=== PATIENT | female | born 1950 | race Caucasian/White ===

== ENCOUNTER 2017-04-08 21:58 | Emergency (ER) | payer MEDICARE, OTHER ==
[2017-04-08] MEDS ORDERED: Ondansetron 4 MG Tab.DIS PO ONE (22:17)
[2017-04-08] MEDS ORDERED: Ketorolac 30 MG/ML SDV IM ONE (22:17)
[2017-04-08] MEDS ORDERED: Morphine 2 MG/ML Syringe IM ONE (22:17)
--- NOTE | 2017-04-08 22:17 | EDM.PDOC ---
ED HPI GENERAL MEDICAL PROBLEM - General Chief Complaint: Neck Problem Stated Complaint: PT HAS PAIN IN NECK Time Seen by Provider: 04/08/17 23:00 - History of Present Illness INITIAL COMMENTS - FREE TEXT/NARRATIVE: HISTORY AND PHYSICAL: History of present illness: Patient 66-year-old female presents concern of left-sided neck pain started earlier today and got progressively worse she comes in with pain and spasm to her left neck. She denies numbness weakness denies any recent or remote trauma denies similar episodes prior Review of systems: As per history of present illness and below otherwise all systems reviewed and negative. Past medical history: As per history of present illness and as reviewed below otherwise noncontributory. Surgical history: As per history of present illness and as reviewed below otherwise noncontributory. Social history: No reported history of drug or alcohol abuse. Family history: As per history of present illness and as reviewed below otherwise noncontributory. Physical exam: HEENT: Atraumatic, normocephalic, pupils reactive, negative for conjunctival pallor or scleral icterus, mucous membranes moist, throat clear, patient noted tenderness and spasm in the left sternocleidomastoid is no vertebral body or point tenderness nontender, trachea midline. Lungs: Clear to auscultation, breath sounds equal bilaterally, chest nontender. Heart: S1S2, regular, negative for clicks, rubs, or JVD. Abdomen: Soft, nondistended, nontender. Negative for masses or hepatosplenomegaly. Negative for costovertebral tenderness. Pelvis: Stable nontender. Genitourinary: Deferred. Rectal: Deferred. Extremities: Atraumatic, negative for cords or calf pain. Neurovascular unremarkable. Neuro: Awake, alert, oriented. Cranial nerves II through XII unremarkable. Cerebellum unremarkable. Motor and sensory unremarkable throughout. Exam nonfocal. Diagnostics: CT cervical spine Therapeutics: Toradol 30 mg IM morphine sulfate 2 mg IM Zofran 4 mg ODT Impression: #1 torticollis Definitive disposition and diagnosis as appropriate pending reevaluation and review of above. Left Neck Pain Score (Numeric/FACES): 6 - Related Data Allergies Allergy/AdvReac Type Severity Reaction Status Date / Time No Known Allergies Allergy Verified 04/08/17 22:14 Home Meds: Home Meds atorvaSTATin [Lipitor] 0 mg PO BEDTIME 04/08/17 [History] ED ROS GENERAL - Review of Systems Review Of Systems: ROS reveals no pertinent complaints other than HPI. ED EXAM, GENERAL - Physical Exam Exam: See Below (See dictation) Course - Vital Signs Last Recorded V/S: Last Vital Signs Temp 36.6 C 04/09/17 00:53 Pulse 73 04/09/17 00:53 Resp 18 04/09/17 00:53 BP 128/74 04/09/17 00:53 Pulse Ox 98 04/09/17 00:53 - Orders/Labs/Meds Orders: Active Orders 24 hr Category Date Time Status Cervical Spine wo Cont [CT] Stat Exams 04/08/17 22:08 Taken Meds: Medications Discontinued Medications Generic Name Dose Route Start Last Admin Trade Name Freq PRN Reason Stop Dose Admin Ketorolac Tromethamine 30 mg 04/08/17 22:17 04/08/17 22:30 Toradol IM 04/08/17 22:18 30 mg ONETIME ONE Administration Morphine Sulfate 2 mg 04/08/17 22:17 04/08/17 22:31 Morphine IM 04/08/17 22:18 2 mg ONETIME ONE Administration Ondansetron HCl 4 mg 04/08/17 22:17 04/08/17 22:31 Zofran Odt PO 04/08/17 22:18 4 mg ONETIME ONE Administration Departure - Departure Time of Disposition: 22:16 Disposition: Home, Self-Care 01 Condition: Good Clinical Impression: Torticollis - Discharge Information Instructions: Acute Torticollis Referrals: PCP,None [Primary Care Provider] - Forms: ED Department Discharge Additional Instructions: The following information is given to patients seen in the emergency department who are being discharged to home. This information is to outline your options for follow-up care. We provide all patients seen in our emergency department with a follow-up referral. The need for follow-up, as well as the timing and circumstances, are variable depending upon the specifics of your emergency department visit. If you don't have a primary care physician on staff, we will provide you with a referral. We always advise you to contact your personal physician following an emergency department visit to inform them of the circumstance of the visit and for follow-up with them and/or the need for any referrals to a consulting specialist. The emergency department will also refer you to a specialist when appropriate. This referral assures that you have the opportunity for followup care with a specialist. All of these measure are taken in an effort to provide you with optimal care, which includes your followup. Under all circumstances we always encourage you to contact your private physician who remains a resource for coordinating your care. When calling for followup care, please make the office aware that this follow-up is from your recent emergency room visit. If for any reason you are refused follow-up, please contact the [facility] emergency department at and asked to speak to the emergency department charge nurse. Hydrocodone Flexeril as prescribed follow-up primary medical doctor 1-2 days return as needed as discussed] - My Orders Last 24 Hours: My Active Orders 04/08/17 22:08 Cervical Spine wo Cont [CT] Stat - Assessment/Plan Last 24 Hours: My Active Orders 04/08/17 22:08 Cervical Spine wo Cont [CT] Stat
--- NOTE | 2017-04-09 11:20 | CT ---
EXAM DATE: 04/08/17 PATIENT'S AGE: 66 Patient: ANTOLIN NGUYEN Facility: [place], [place] Site . Site : 1950 Study: CT Spine Cervical [id number]/28/2017 11:25:59 PM Ordering Physician: Doctor Puentes Final Report: INDICATION: Neck pain TECHNIQUE: CT cervical spine without contrast. COMPARISON: None available FINDINGS: The cervical spine alignment is maintained. The craniocervical and atlantoaxial alignments are near anatomical. There is no evidence of an acute cervical spine fracture. There is no significant precervical soft tissue swelling. There are small disc osteophyte complexes at C3-4 and C4-5. There is mild narrowing of the right C3-4 and C4-5 neural foramina and left C4-5 neural foramen. The thyroid is diffusely heterogeneous, containing multiple ill-defined low-density lesions. IMPRESSION: No evidence of an acute cervical spine fracture. Mild degenerative changes as described above. Diffusely heterogeneous thyroid containing multiple ill-defined low-density lesions. Correlate with nonemergent sonography. Dictated by Anuel Escalona MD @ 04/09/2017 12:15:09 AM Dictated by: Anuel Escalona MD @ 04/09/2017 00:15:43 (Electronic Signature) Report Signed by Proxy. [facility] HOSPITALBetsey
== END 2017-04-09 00:55 | disposition home or self-care (01) ==
LOC: MW.ED 21:58
DX: M43.6 Torticollis (principal)
CPT/HCPCS: 72125; 96372; 99283; A9270; J1885; J2270; 99282

== ENCOUNTER 2021-03-16 06:43 | Day surgery (SDC) | payer MEDICARE, OTHER ==
[~2021-03-16 06:43] MED LIST: Lactated Ringers 1,000 ML IV SCH
--- NOTE | 2021-03-16 07:08 | PCM.PREANE ---
Preanesthetic Assessment - Procedure Proposed Procedure: Colonoscopy - Anesthesia/Transfusion/Family Hx Anesthesia History: Prior Anesthesia Without Reaction Family History of Anesthesia Reaction: No Transfusion History: No Prior Transfusion(s) - Review of Systems General: No Symptoms Pulmonary: No Symptoms Cardiovascular: No Symptoms (HLD) Gastrointestinal: No Symptoms Neurological: No Symptoms Other: Reports: None - Physical Assessment NPO Status Date: 03/14/21 NPO Status Time: 19:30 (Solids, >8 Hr Liq) Height: 5 ft 6 in Weight: 86.636 kg ASA Class: 2 Mental Status: Alert & Oriented x3 Airway Class: Mallampati = 3 Dentition: Reports: Normal Dentition Thyro-Mental Finger Breadths: 3 Mouth Opening Finger Breadths: 3 ROM/Head Extension: Full Lungs: Clear to Auscultation, Normal Respiratory Effort Cardiovascular: Regular Rate, Regular Rhythm - Allergies Allergies/Adverse Reactions: Allergies Allergy/AdvReac Type Severity Reaction Status Date / Time iodine Allergy flu Verified 03/13/21 08:25 symptoms seafood Allergy flu Uncoded 03/13/21 08:25 symptoms - Acknowledgements Anesthesia Type Planned: General Anesthesia Pt an Appropriate Candidate for the Planned Anesthesia: Yes Alternatives and Risks of Anesthesia Discussed w Pt/Guardian: Yes Pt/Guardian Understands and Agrees with Anesthesia Plan: Yes PreAnesthesia Questionnaire HEENT History: Reports: Hard of Hearing, Other (See Below) Other HEENT History: wears glasses for driving/reading, has loretta hearing aids Cardiovascular History: Reports: High Cholesterol Respiratory History: Reports: None Gastrointestinal History: Reports: Colon Polyp Genitourinary History: Reports: None [employer] History: Reports: Musculoskeletal History: Reports: Fracture Neurological History: Reports: None Psychiatric History: Reports: None Endocrine/Metabolic History: Reports: Obesity/BMI 30+ Hematologic History: Reports: None Immunologic History: Reports: None Oncologic (Cancer) History: Reports: Ovarian Dermatologic History: Reports: None - Past Surgical History Head Surgeries/Procedures: Reports: None HEENT Surgical History: Reports: Tonsillectomy Cardiovascular Surgical History: Reports: None Respiratory Surgical History: Reports: None GI Surgical History: Reports: Colonoscopy Female Surgical History: Reports: Hysterectomy, Salpingo-Oophorectomy Endocrine Surgical History: Reports: None Neurological Surgical History: Reports: None Musculoskeletal Surgical History: Reports: Amputation, ORIF, Other (See Below) Other Musculoskeletal Surgeries/Procedures:: repair of fx right wrist with hardware, 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 Oncologic Surgical History: Reports: Other (See Below) Other Oncologic Surgeries/Procedures: total hysterectomy Dermatological Surgical History: Reports: None - SUBSTANCE USE Tobacco Use Status *Q: Current Every Day Tobacco User Tobacco Use Within Last Twelve Months: Cigarettes - HOME MEDS Home Medications: Home Meds atorvaSTATin [Lipitor] 20 mg PO BEDTIME 04/08/17 [History] Ascorbic Acid [Vitamin C] 1,000 mg PO DAILY 03/13/21 [History] Aspirin 81 mg CHEW DAILY 03/13/21 [History] Cholecalciferol (Vitamin D3) [Vitamin D3] 50 mcg PO DAILY 03/13/21 [History] Multivitamin 1 tab PO DAILY 03/13/21 [History] Zinc 100 mg PO DAILY 03/13/21 [History] - CURRENT (IN HOUSE) MEDS Current Meds: Current Medications Lactated Ringer's (Ringers, Lactated) 1,000 mls @ 125 mls/hr IV ASDIRECTED JOY
[2021-03-16] MEDS ORDERED: Propofol 200 MG/20 ML SDV ONE (07:28)
[2021-03-16] MEDS ORDERED: fentaNYL 100 MCG/2 ML SDV ONE (07:28)
--- NOTE | 2021-03-16 08:34 | PCM.OPNOTE ---
- General Post-Op/Procedure Note Date of Surgery/Procedure: 03/16/21 Operative Procedure(s): Colonoscopy Pre Op Diagnosis: Personal history of colon polyps. Post-Op Diagnosis: Sigmoid diverticulosis Anesthesia Technique: MAC (ASA II) Primary Surgeon: Kun Ramirez Administrative Executive: Ry Baxter Condition: Good Free Text/Narrative:: DICTATION [id number] CPT CODE 11217
[2021-03-16] MEDS ORDERED: Lactated Ringers 1,000 ML IV SCH (08:45)
--- NOTE | 2021-03-16 08:45 | PCM.POSTAN ---
POST ANESTHESIA ASSESSMENT - MENTAL STATUS Mental Status: Alert, Oriented - VITAL SIGNS Vital Signs: Last Vital Signs Temp 98.6 F 03/16/21 08:30 Pulse 74 03/16/21 08:41 Resp 15 03/16/21 08:41 BP 120/71 03/16/21 08:41 Pulse Ox 97 03/16/21 08:41 - RESPIRATORY Respiratory Status: Respiratory Rate WNL, Airway Patent, O2 Saturation Stable - CARDIOVASCULAR CV Status: Pulse Rate WNL, Blood Pressure Stable - GASTROINTESTINAL GI Status: No Symptoms - PAIN Pain Score: 0 - POST OP HYDRATION Hydration Status: Adequate & Stable
--- NOTE | 2021-03-16 08:55 | PCM48HPAN ---
Post Anesthesia Note - EVALUATION WITHIN 48HRS OF ANESTHETIC Vital Signs in Normal Range: Yes Patient Participated in Evaluation: Yes Respiratory Function Stable: Yes Airway Patent: Yes Cardiovascular Function Stable: Yes Hydration Status Stable: Yes Pain Control Satisfactory: Yes Nausea and Vomiting Control Satisfactory: Yes Mental Status Recovered: Yes Vital Signs: Last Vital Signs Temp 98.6 F 03/16/21 08:30 Pulse 74 03/16/21 08:46 Resp 13 03/16/21 08:46 BP 117/68 03/16/21 08:46 Pulse Ox 98 03/16/21 08:46 - COMMENTS/OBSERVATIONS Free Text/Narrative:: Pt doing well post-op. VSS. No apparent anesthetic complications. Dr. Jose Ahumada
--- NOTE | 2021-03-16 12:05 | OR ---
SURGEON: Kun Ramirez M.D. DATE OF PROCEDURE: 03/16/2021 OPERATION PERFORMED: Colonoscopy. PRIMARY SURGEON: Kun Ramirez M.D. SENIOR UI DEVELOPER: [employer]: ANA M Rojas student. ANESTHESIA: MAC. ASA CLASSIFICATION: II. PREOPERATIVE DIAGNOSES: 1. Personal history of colon polyps. 2. History of diverticulosis. POSTOPERATIVE DIAGNOSES: Mild sigmoid diverticulosis. DESCRIPTION OF PROCEDURE: The patient was taken to the endoscopy room and positioned on the endoscopy table in the left lateral decubitus position. Time-out was called for appropriate identification of the patient and procedure. Monitored anesthesia care was provided. The colonoscope was inserted into the rectum and advanced with moderate difficulty to the cecum. The cecum was identified by internal landmarks and external pressure. The colonoscope was retroflexed to visualize the ascending colon from below, then straightened and slowly withdrawn. The cecum, ascending colon, hepatic flexure, transverse colon, splenic flexure, and descending colon showed no tumors, polyps, diverticula, or angiodysplastic changes. Sigmoid colon demonstrated a few scattered diverticula. No stricture, spasm, or bleeding was noted. The colonoscope was withdrawn to the rectum and retroflexed to visualize the anal orifice from above. Again, no tumors or polyps were seen, and there were no acute hemorrhoidal changes. The colonoscope was then straightened, the rectum aspirated, and the colonoscope removed. Patient tolerated the procedure well and was taken to recovery room in stable condition. ALEX / GADIEL /[id number]
== END 2021-03-16 09:10 | disposition home or self-care (01) ==
LOC: MW.SDS 06:43
PROVIDERS: ATTEND Surgery
DX: Z12.11 Encounter for screening for malignant neoplasm of colon (principal); K57.30 Diverticulosis of large intestine without perforation or abscess without bleeding; E78.00 Pure hypercholesterolemia, unspecified; E66.9 Obesity, unspecified; G47.00 Insomnia, unspecified; F17.210 Nicotine dependence, cigarettes, uncomplicated; Z91.013 Allergy to seafood; Z79.82 Long term (current) use of aspirin; Z86.010 Personal history of colon polyps; Z79.899 Other long term (current) drug therapy
CPT/HCPCS: G0105; J2704; J3010; J7120

== ENCOUNTER 2022-05-09 08:35 | Observation (INO) | payer MEDICARE, OTHER ==
[2022-05-09] MEDS ORDERED: Sodium Chloride 0.9% 10 ML Syringe FLUSH PRN (08:39)
[2022-05-09] MEDS ORDERED: Sodium Chloride 0.9% 2.5 ML Syringe FLUSH PRN (08:39)
[2022-05-09] MEDS ORDERED: Ondansetron 4 MG/2 ML SDV IVPUSH ONE (08:45)
[2022-05-09 09:30] LABS: CARBON DIOXIDE,CO2 25.8 mmol/L (21.0-32.0); POTASSIUM,K 3.5 mmol/L (3.5-5.1)
[2022-05-09 09:36] LABS: CORONAVIRUS COVID-19 NAA NEGATIVE (NEGATIVE); INFLUENZA A NAA NEGATIVE (NEGATIVE); INFLUENZA B NAA NEGATIVE (NEGATIVE); RESPIRATORY SYNCYTIAL VIR NAA NEGATIVE (NEGATIVE)
[2022-05-09] MEDS ORDERED: cefTRIAXone 1 GM in Sodium Chloride 0.9% 50 ML IV ONE (10:27)
[2022-05-09] MEDS ORDERED: Azithromycin 500 MG in Sodium Chloride 0.9% 250 ML IV ONE (10:27)
[2022-05-09] MEDS ORDERED: Acetaminophen 325 MG Tab PO PRN (10:31)
[2022-05-09] MEDS ORDERED: Polyethylene Glycol 3350 Powder 17 GM Packet PO PRN (10:31)
[2022-05-09] MEDS ORDERED: Ondansetron 4 MG/2 ML SDV IVPUSH PRN (10:31)
[2022-05-09] MEDS ORDERED: Albuterol/Ipratropium 3.0-0.5 MG/3 ML Neb Soln NEB PRN (10:31)
[2022-05-09] MEDS: atorvaSTATin 10 MG Tab PO SCH (20:16)
[2022-05-10 08:01] LABS: CARBON DIOXIDE,CO2 27.3 mmol/L (21.0-32.0); POTASSIUM,K 3.6 mmol/L (3.5-5.1)
[2022-05-10] MEDS: Azithromycin 250 MG Tab PO SCH (08:33)
[2022-05-10] MEDS: cefTRIAXone 1 GM in Sodium Chloride 0.9% 50 ML IV SCH (08:34)
[2022-05-10] MEDS ORDERED: Furosemide 20 MG/2 ML VIAL IVPUSH ONE (10:42)
[2022-05-10] MEDS: Fluticasone NASAL Spray 16 GM Bottle NASBOTH SCH (11:06)
[2022-05-10] MEDS: atorvaSTATin 10 MG Tab PO SCH (20:09)
[2022-05-11 07:03] LABS: CARBON DIOXIDE,CO2 31.6 mmol/L (21.0-32.0); POTASSIUM,K 3.9 mmol/L (3.5-5.1)
[2022-05-11] MEDS: Fluticasone NASAL Spray 16 GM Bottle NASBOTH SCH (08:28)
[2022-05-11] MEDS: cefTRIAXone 1 GM in Sodium Chloride 0.9% 50 ML IV SCH (08:29)
[2022-05-11] MEDS: Azithromycin 250 MG Tab PO SCH (08:29)
[2022-05-11] MEDS ORDERED: Levofloxacin 750 MG Tab PO SCH (10:45)
== END 2022-05-11 11:30 | disposition home or self-care (01) ==
LOC: MW.ED 08:35 → MW.MS 10:28
PROVIDERS: ADMIT Student in an Organized Health Care Education/Training Program; ATTEND Student in an Organized Health Care Education/Training Program
DX: J96.01 Acute respiratory failure with hypoxia (principal); J18.9 Pneumonia, unspecified organism; E78.2 Mixed hyperlipidemia; E66.9 Obesity, unspecified; E78.00 Pure hypercholesterolemia, unspecified; F17.210 Nicotine dependence, cigarettes, uncomplicated; Z68.28 Body mass index [BMI] 28.0-28.9, adult; Z79.899 Other long term (current) drug therapy; Z20.822 Contact with and (suspected) exposure to COVID-19; Z91.041 Radiographic dye allergy status; Z91.013 Allergy to seafood; Z98.890 Other specified postprocedural states; Z90.710 Acquired absence of both cervix and uterus; Z79.82 Long term (current) use of aspirin
CPT/HCPCS: 0241U; 36415; 71046; 80048; 80053; 83735; 83880; 84100; 84484; 85025; 93005; 93306; 96365; 96367; 96375; 99285; A9270; J0456; J0696; J1940; J2405; J3490; J7050; 96376; G0378; J7620-GY

== ENCOUNTER 2022-05-30 07:47 | Emergency (ER) | payer MEDICARE, OTHER ==
[2022-05-30] MEDS ORDERED: Sodium Chloride 0.9% 10 ML Syringe FLUSH PRN (08:24)
[2022-05-30] MEDS ORDERED: Sodium Chloride 0.9% 2.5 ML Syringe FLUSH PRN (08:24)
[2022-05-30 09:19] LABS: CARBON DIOXIDE,CO2 26.1 mmol/L (21.0-32.0); POTASSIUM,K 4.3 mmol/L (3.5-5.1)
[2022-05-30 09:42] LABS: CORONAVIRUS COVID-19 NAA NEGATIVE (NEGATIVE); INFLUENZA A NAA NEGATIVE (NEGATIVE); INFLUENZA B NAA NEGATIVE (NEGATIVE)
[2022-05-30] MEDS ORDERED: Furosemide 40 MG/4 ML VIAL IVPUSH ONE (09:48)
[2022-05-30] MEDS ORDERED: Albuterol/Ipratropium 3.0-0.5 MG/3 ML Neb Soln NEB ONE (09:49)
== END 2022-05-30 10:43 | disposition home or self-care (01) ==
LOC: MW.ED 07:47
DX: I11.0 Hypertensive heart disease with heart failure (principal); I50.9 Heart failure, unspecified; R06.02 Shortness of breath; E78.00 Pure hypercholesterolemia, unspecified; F17.210 Nicotine dependence, cigarettes, uncomplicated; E66.9 Obesity, unspecified; Z68.30 Body mass index [BMI] 30.0-30.9, adult; Z91.041 Radiographic dye allergy status; Z91.013 Allergy to seafood; Z79.899 Other long term (current) drug therapy; Z20.822 Contact with and (suspected) exposure to COVID-19
CPT/HCPCS: 0240U; 36415; 71046; 80053; 83735; 83880; 84484; 85025; 85379; 93005; 96374; 99285; J1940; J3490; J7620-GY

== ENCOUNTER 2023-08-19 10:07 | Day surgery (SDC) | payer MEDICARE, OTHER ==
[2023-08-18 08:19] LABS: HEMATOCRIT 43.4 % (37.0-47.0); HEMOGLOBIN 14.2 g/dL (12.0-16.0); MEAN CORPUSCULAR HEMOGLOBIN 30.5 pg (28.0-32.0); MEAN CORPUSCULAR HGB CONC 32.7 g/dL (32.0-36.0); MEAN CORPUSCULAR VOLUME 93.3 fL (83.0-99.0); MEAN PLATELET VOLUME 10.4 fL (9.4-12.3); PLATELET COUNT,PLT 271 K/uL (150-400); RED BLOOD CELL COUNT 4.65 M/uL (4.10-5.30); WHITE BLOOD CELL COUNT,WBC 9.09 K/uL (3.9-11.3)
[2023-08-18 08:36] LABS: CALCIUM 9.5 mg/dL (8.5-10.1); CARBON DIOXIDE,CO2 26.9 mmol/L (21.0-32.0); CREATININE 0.8 mg/dL (0.6-1.0); EST CRCL DRUG DOSING (CG) 52.72 mL/min; POTASSIUM,K 3.8 mmol/L (3.5-5.1)
[2023-08-19] MEDS: Lactated Ringers 1,000 ML IV SCH (08:26)
[~2023-08-19 10:07] MED LIST changes: +Albuterol 0.083% 2.5 MG/3 ML Neb Soln NEB PRN; +HYDROmorphone 1 MG/ML Syringe IVPUSH PRN; -Lactated Ringers 1,000 ML IV SCH; +Lidocaine 2% 11 ML Jelly Filled Syringe ONE; +Metoclopramide 10 MG/2 ML SDV IVPUSH PRN; +Morphine 2 MG/ML SYRINGE IVPUSH PRN; +Naloxone 0.4 MG/ML SDV IVPUSH PRN; +Ondansetron 4 MG/2 ML SDV IVPUSH PRN; +Phenylephrine HCl In 0.9% NaCl 1 MG/10 ML Syringe ONE; +Promethazine 25 MG/ML SDV IM PRN; +Propofol 200 MG/20 ML SDV ONE; +Water For Injection, Sterile 20 ML ONE; +ceFAZolin 2 GM Vial ONE; +droPERidol 5 MG/2 ML SDV IVPUSH PRN; +ePHEDrine 50 MG/ML SDV ONE; +fentaNYL 100 MCG/2 ML SDV ONE; +fentaNYL 50 MCG/ML SDV IVPUSH PRN; +propofoL 50 ML ONE
[2023-08-19] MEDS: Ketorolac 30 MG/ML SDV IVPUSH ONE (11:23)
[2023-08-19] MEDS: Ketorolac 30 MG/ML SDV IVPUSH PRN (19:21)
[2023-08-19] MEDS: CARVEDILOL 12.5 MG PO SCH (20:53)
[2023-08-20 05:51] LABS: BASOPHILS ABSOLUTE AUTO 0.03 K/uL (0.00-0.20); BASOPHILS PERCENT AUTO 0.3 % (0.0-1.0); EOSINOPHILS ABSOLUTE AUTO 0.17 K/uL (0.00-0.45); EOSINOPHILS PERCENT AUTO 1.6 % (0.0-6.0); HEMATOCRIT 36.8 % (37.0-47.0); HEMOGLOBIN 12.3 g/dL (12.0-16.0); IMMATURE GRAN ABSOLUTE AUTO 0.03 K/uL (0.00-0.05); IMMATURE GRAN PERCENT AUTO 0.3 % (0.0-0.4); LYMPHOCYTES ABSOLUTE AUTO 2.32 K/uL (1.00-4.80); LYMPHOCYTES PERCENT AUTO 22.3 % (24.0-44.0); MEAN CORPUSCULAR HEMOGLOBIN 31.6 pg (28.0-32.0); MEAN CORPUSCULAR HGB CONC 33.4 g/dL (32.0-36.0); MEAN CORPUSCULAR VOLUME 94.6 fL (83.0-99.0); MEAN PLATELET VOLUME 10.3 fL (9.4-12.3); MONOCYTES ABSOLUTE AUTO 0.82 K/uL (0.00-0.80); MONOCYTES PERCENT AUTO 7.9 % (0.0-8.0); NEUTROPHILS ABSOLUTE AUTO 7.05 K/uL (1.80-7.70); NEUTROPHILS PERCENT AUTO 67.6 % (41.0-71.0); PLATELET COUNT,PLT 212 K/uL (150-400); RED BLOOD CELL COUNT 3.89 M/uL (4.10-5.30); WHITE BLOOD CELL COUNT,WBC 10.42 K/uL (3.9-11.3)
[2023-08-20 06:09] LABS: CARBON DIOXIDE,CO2 27.6 mmol/L (21.0-32.0); CREATININE 0.7 mg/dL (0.6-1.0); EST CRCL DRUG DOSING (CG) 60.25 mL/min; POTASSIUM,K 4.4 mmol/L (3.5-5.1)
[2023-08-20] MEDS ORDERED: Spironolactone 25 MG Tab PO SCH (09:00)
[2023-08-20] MEDS ORDERED: Empagliflozin 10 MG Tab PO SCH (09:00)
[2023-08-20] MEDS ORDERED: Losartan 50 MG Tab PO SCH (09:00)
== END 2023-08-20 08:40 | disposition home or self-care (01) ==
LOC: MW.SDS 10:07 → MW.MS 10:51 → UNDOADMOB 10:51 → MW.SDS 08-20 08:40 → UNDODISOB 08-20 08:40
PROVIDERS: ATTEND Obstetrics & Gynecology
DX: N99.3 Prolapse of vaginal vault after hysterectomy (principal); E78.00 Pure hypercholesterolemia, unspecified; E66.9 Obesity, unspecified; Z68.33 Body mass index [BMI] 33.0-33.9, adult
CPT/HCPCS: 36415; 57260; 80048; 85025; 85027; 86850; 86900; 86901; 88302; A9270; J0690; J1885; J2371; J2704; J3010; J7120; 00860; 99100; J3490